=== PATIENT | female | born 1985 | race Caucasian/White ===

== ENCOUNTER 2022-04-14 12:38 | Outpatient (CLI) | payer BC, SELFPAY ==
--- NOTE | 2022-04-14 13:00 | CRLHL7_ITS ---
For Patients: As a result of the Century Cures Act, medical imaging exams and procedure reports are released immediately into your electronic medical record. You may view this report before your referring provider. If you have questions, please contact your health care provider. INDICATION: Dysfunction of eustachian tube. TECHNIQUE: Noncontrast CT images acquired through the temporal bones. COMPARISON: None. FINDINGS: Right side: The external auditory canal is widely patent and demonstrates mild soft tissue attenuation likely representing cerumen. The tympanic membrane is faintly visualized. The middle ear cavity is clear. The ossicles and scutum are intact. No evidence for otosclerosis. Normal morphology of the inner ear structures. No semicircular canal dehiscence. The mastoid air cells are clear. No osseous defect in the carotid canal to suggest dehiscence. Left Side: The external auditory canal is widely patent and demonstrates minimal soft tissue attenuation likely representing cerumen. The tympanic membrane is faintly visualized. The middle ear cavity is clear. The ossicles and scutum are intact. No evidence for otosclerosis. Normal morphology of the inner ear structures. No semicircular canal dehiscence. The mastoid air cells are clear. No osseous defect in the carotid canal to suggest dehiscence. Other: The paranasal sinuses are well aerated. Minimal mucosal thickening in the ethmoid air cells. IMPRESSION: Unremarkable CT of the temporal bones. Please note that all CT scans at this facility use dose modulation, iterative reconstruction, and/or weight-based dosing when appropriate to reduce radiation dose to as low as reasonably achievable. Dictated by Obdulio Monzon MD @ 04/14/2022 7:21:04 PM (Electronically Signed)
== END 2022-04-14 12:39 | disposition home or self-care (01) ==
PROVIDERS: PCP Student in an Organized Health Care Education/Training Program; Visit Provider Otolaryngology
DX: H69.80 Other specified disorders of Eustachian tube, unspecified ear (principal)
CPT/HCPCS: 70480